=== PATIENT | female | born 1970 | race Caucasian/White ===

== ENCOUNTER → 2018-05-07 | Outpatient (CLI) | payer OTHER | LOC: BMCIMAGING 10:47 → EDSTATUS 10:50 | PROVIDERS: ATTEND Family Medicine | DX: S69.91XA Unspecified injury of right wrist, hand and finger(s), initial encounter (principal); X58.XXXA Exposure to other specified factors, initial encounter; Y93.9 Activity, unspecified; Y92.9 Unspecified place or not applicable ==

== ENCOUNTER → 2018-05-29 | Outpatient (CLI) | payer OTHER | LOC: FIMAGING 11:56 | PROVIDERS: ATTEND Family Medicine | DX: S42.031A Displaced fracture of lateral end of right clavicle, initial encounter for closed fracture (principal) ==